=== PATIENT | female | born 1955 | race Caucasian/White ===

== ENCOUNTER 2019-01-12 10:43 | Emergency (ER) | payer OTHER, SELFPAY ==
[2019-01-12] VITALS (11 sets, daily range): BP systolic 115–151; BP diastolic 55–77; PULSE 89–117; RESP 14–20; TEMP 37.2–37.7; O2SAT 91–100; BMI 49.4
--- NOTE | 2019-01-12 11:09 | RAD_ITS ---
STUDY: X-RAY CHEST REASON FOR EXAM: Female, 63 years old. Cough, wheezing and shortness of breath. TECHNIQUE: AP and lateral views of the chest. COMPARISON: None. FINDINGS: EKG electrodes are seen. The lungs are clear and expanded. There is no demonstrated pleural abnormality. Normal size heart. Normal mediastinum and keaton. Normal visualized pulmonary arteries. Normal visualized aortic arch and descending thoracic aorta. Normal visualized thoracic spine. Normal visualized ribs, clavicles, and shoulders. There is no demonstrated abnormality of the visualized soft tissue structures of the upper abdomen. RAD/Chest PA and Lateral IMPRESSION: Normal x-ray examination of the chest. Electronically Signed: Gunnar Neely, at 12:46 EDT , Service support ,
--- NOTE | 2019-01-12 11:10 | ED.DCSUM_ITS ---
History of Present Illness Chief Complaint: Shortness of Breath Informant: Patient, Friend Onset: Yesterday Timing: Continuous Quality: Nasal symptoms, sore throat, nonproductive cough shortness of breath Location: Upper respiratory Current Severity: Mild Maximum Severity: Moderate - Activity makes her shortness of breath worse Worsened by: Dyspnea with exertion Relieved by: Nothing Associated Symptoms: Chills this morning Narrative: Patient is a 63-year-old woman who presents with respiratory symptoms. She presents because she is having trouble breathing. Is not normally on oxygen. She denies fever, chills or night sweats. She denies cardiac symptoms. She denies GI symptoms. She denies urologic symptoms. She denies leg pain, swelling discoloration. There is no history of PE or DVT. Prior similar symptoms: No Recent Illness/Hospitalization: No - Past Medical History (1) History of hypertension Status: Acute (2) History of type 2 diabetes mellitus Status: Acute (3) History of hypercholesterolemia Status: Acute (4) History of hypothyroidism Status: Acute (5) History of gastroesophageal reflux (GERD) Status: Acute Past Medical History - Allergies and Home Meds Allergies/Adverse Reactions: Allergies No Known Allergies Allergy (Verified 01/12/19 10:55) Primary Care Physician: Ras Sorenson DO [Primary Care Provider] - Prior records reviewed: Yes Lives: Alone Smoking Status: Current every day smoker Alcohol: None Drugs: None Review of Systems General: Denies: Chills, Fever, Sweats Eyes: Denies: Visual changes - bilaterally, Blurred Vision - bilaterally, Diplopia ENT: Denies: Rhinorrhea, Sore throat Cardiovascular: Denies: Chest pain, Palpitations Respiratory: Reports: Dyspnea, Cough, Dyspnea on exertion. Denies: Sputum Gastrointestinal: Denies: Abdominal pain, Nausea, Vomiting, Diarrhea, Melena, Hematochezia Genitourinary: Denies: Dysuria, Hematuria, Frequency Musculoskeletal: Denies: Myalgias, Arthralgias, Neck pain, Back pain, Swelling, Extremity Pain Skin: Denies: Rash, Wounds Neurological: Denies: Headache, Weakness, Numbness Psych: Reports: Depression. Denies: Anxiety Allergy: Denies: Uticaria, Swelling of the mouth, Swelling of the tongue Physical Exam Vital Signs/Narrative: Vital Signs Temp Pulse Resp BP Pulse Ox 01/12/19 10:45 98.9 F 92 20 H 151/75 H 93 Inital Vital Signs reviewed: Yes General: Well nourished, Well developed, Acute Distress Head: Normocephalic Eyes: Perrl, EOMI. Negative for: Pale conjunctiva, Scleral icterus ENT: Moist mucous membranes, No rhinorrhea, TM's clear. Negative for: Sinus tenderness Neck: Supple, Nontender, No lymphadenopathy, No JVD Cardiovascular: Regular rate, Regular rhythm, No murmurs, Normal S1, Normal S2 Respiratory: Wheezing, Decreased Air Movement Abdomen: Soft, Nontender, Nondistended, Normal bowel sounds Rectal: Deferred Back: Nontender, Normal Inspection. Negative for: CVA tenderness, Spinal tenderness Extremities: Nontender, No edema Skin: Normal color, No rash, No Trauma. Negative for: Cyanosis, Diaphoresis, Jaundice Neurological: Alert, Oriented x3, Cranial nerves II-XII grossly intact, Normal Strength, Normal Sensation Psychological: Normal Mood, Depressed Diagnostic/Tx/Re-eval Chest X-Ray - ED: Read by Radiologist, No Acute Disease Impressions Chest X-Ray 01/12/19 11:09 IMPRESSION: Normal x-ray examination of the chest. Electronically Signed: Gunnar Chin, at 12:46 EDT , Service support , 01/12/19 11:09 Chest PA and Lateral [RAD] Stat Laboratory Results 01/12/19 01/12/19 11:45 11:45 WBC 4.5 RBC 4.07 L Hgb 12.1 Hct 38.2 MCV 93.9 MCH 29.7 MCHC 31.7 L RDW Std Deviation 46.1 H RDW Coeff of Josefa 13.3 Plt Count 169 MPV 9.4 Immature Gran % (Auto) 0.400 Neut % (Auto) 52.0 Lymph % (Auto) 39.2 Polk % (Auto) 6.9 Eos % (Auto) 1.1 Baso % (Auto) 0.4 Absolute Neuts (auto) 2.3 Absolute Lymphs (auto) 1.77 Nucleated RBC % 0 Sodium 136 Potassium 3.9 Chloride 102 Carbon Dioxide 25.0 Anion Gap 9 BUN 22 H Creatinine 0.93 Estim Creat Clear Calc 50.24 Est GFR (MDRD) Af Amer 78 Est GFR (MDRD) Non-Af 65 BUN/Creatinine Ratio 23.6 H Glucose 173 H Calcium 8.5 - Rhythm Strip Rhythm Strip: Sinus Rhythm Rate: 93 Ectopy: None - EKG Initial EKG Interpretation: Sinus Rhythm - EKG performed by paramedics reveals sinus rhythm rate of 87. MD interval, cures duration, axis and QT interval are all normal. - Medical Decision Making Since patient is wheezing she was treated with aerosols and appropriate blood work was obtained for risk stratification in the event the chest x-ray showed evidence of pneumonia. There is no evidence of pneumonia. Patient was reassessed at 1445. She is no longer wheezing. She is not hypoxic. ED Disposition - Plan for ED Patient: Disposition: Home or Assisted Living Diagnosis: Acute bronchospasm due to viral infection Instructions: BRONCHITIS with Wheezing (Adult) Prescriptions: Albuterol Inhaler [Ventolin Hfa] 2 puff INHALATION Q4H PRN PRN #1 inhaler PRN Reason: Wheezing [id number] Referrals: Ras Sorenson DO [Primary Care Provider] - 3-5 Days if not improving Additional Instructions: Your prescription was electronically transmitted to [facility] pharmacy located in [place].
[2019-01-12] MEDS: Albuterol 2.5 MG/3 ML VIAL.NEB. INHALATION ×3 (11:26→12:19)
[2019-01-12 11:50] LABS: Absolute Lymphocyte Count 1.77 X10^3/uL (0.83-4.51); Absolute Neutrophil Count 2.3 X10^3/uL (2.0-7.7); Basophil# 0.02 X10^3/uL; Basophil% 0.4 % (0-1); Eosinophil# 0.05 X10^3/uL; Eosinophils% 1.1 % (0-5); Hematocrit 38.2 % (37-47); Hemoglobin 12.1 g/dL (12.0-15.0); Lymphocyte # 1.77 X10^3/ul (4.0); Lymphocyte % 39.2 % (19-41); Mean Corp Hgb Conc 31.7 g/dL (32-36); Mean Corpuscular Hgb 29.7 pg (27.0-32.0); Mean Corpuscular Volume 93.9 fL (81-99); Mean Platelet Vol. 9.4 fl (6.2-12.0); Monocyte# 0.31 X10^3/uL; Monocyte% 6.9 % (0-10); NRBC Flagged by Analyzer 0 % (0-5); Neutrophil # 2.34 X10^3/uL (2.7-7.7); POSITIVE MORPHOLOGY YES; Platelet Count 169 K/mm3 (150-450); RBC Distribution Width CV 13.3 % (11.6-14.6); RBC Distribution Width SD 46.1 fl (35.1-43.9); Red Blood Count 4.07 M/mm3 (4.2-5.4); White Blood Count 4.5 K/mm3 (4.4-11.0)
[2019-01-12 11:52] LABS: Differential Indicated SCAN CRITERIA MET
[2019-01-12 12:14] LABS: Anion Gap 9 (5-15); BUN 22 mg/dL (7-18); BUN/Creat Ratio 23.6 RATIO (10-20); Calcium,Total 8.5 mg/dL (8.5-10.1); Chloride 102 mmol/L (98-107); Creatinine, Serum 0.93 mg/dL (0.55-1.02); EST Glomerular Filtration Rate 65 mL/min (>60); Est Glom Filt Rate - Afr Amer 78 mL/min (>60); Estimated Creatinine Clearance 50.24 ml/min; Glucose 173 mg/dL (74-106); Potassium 3.9 mmol/L (3.5-5.1); Sodium Level 136 mmol/L (136-145)
== END 2019-01-12 15:05 | disposition home or self-care (01) ==
PROVIDERS: Emergency Provider Emergency Medicine; Family Provider Preventive Medicine Occupational Medicine; PCP Preventive Medicine Occupational Medicine
DX: J98.01 Acute bronchospasm (principal); B34.9 Viral infection, unspecified; I10 Essential (primary) hypertension; E11.9 Type 2 diabetes mellitus without complications; E78.00 Pure hypercholesterolemia, unspecified; E03.9 Hypothyroidism, unspecified; K21.9 Gastro-esophageal reflux disease without esophagitis; F17.200 Nicotine dependence, unspecified, uncomplicated; Z79.4 Long term (current) use of insulin; Z79.84 Long term (current) use of oral hypoglycemic drugs; Z79.899 Other long term (current) drug therapy
CPT/HCPCS: 71046; 80048; 85025; 94640; 99285; A4216